=== PATIENT | male | born 1975 | race Two or more races ===

== ENCOUNTER 2019-11-13 10:18 | Emergency (ER) | payer MEDICAID ==
[~2019-11-13] VITALS: Ht 172.7 cm; Wt 78.9 kg
[~2019-11-13 10:18] MED LIST: BACITRACIN15 GM TOPIC; BACTRIM DS TAB1 EAC1 ORAL; CYCLOBENZAPRINE10 MG ORAL; HM DOUBLE ANT28.4 G1 TP; IBUPROFEN600 MG ORAL; TYLENOL325 MG ORAL
[2019-11-13 10:44] VITALS: BP 139/81
--- NOTE | 2019-11-13 10:45 | NUR ---
ED Nurse Note: seen here approx 2 weeks ago and treated for infection to right middle finger. pt relates continues to bed red and swelling.
[2019-11-13] MEDS ORDERED: Cephalexin 500mg cap ORAL ONE (11:00)
[2019-11-13] MEDS ORDERED: AUGMENTIN 875-1 EAC1 ORAL (11:00)
[2019-11-13 11:05] VITALS: BP 132/79
--- NOTE | 2019-11-13 11:05 | NUR ---
ER DISCHARGE NOTE: Patient is cleared to be discharged per ERMD, pt is aox4, on room air, with stable vital signs. pt was given dc and prescription instructions, pt was able to verbalize understanding, pt id band removed. pt is able to ambulate with steady gait. pt took all belongings.
--- NOTE | 2019-11-13 11:08 | Emergency Room Report ---
History of Present Illness General Chief Complaint: Upper Extremity Injury Source: Patient Present Illness HPI Patient is a 44-year-old male denies any significant past medical history who presents to the ER complaining of recurrent infection to his right middle cuticle. Patient states that he has been seen at several facilities and was treated with antibiotics. He states that he is here because he has recurrence of symptoms. No fever or chills. Specifically denies any history of diabetes. Allergies: Coded Allergies: No Known Allergies (Unverified , 11/13/19) Patient History Past Medical History: none Past Surgical History: none Social History: Reports: smoking, alcohol use, drug use Nursing Documentation-[facility] Past Medical History: No Stated History Review of Systems All Other Systems: negative except mentioned in HPI Physical Exam Vital Signs Date Time Temp Pulse Resp B/P (MAP) Pulse Ox O2 Delivery O2 Flow Rate FiO2 11/13/19 10:35 98.4 65 18 139/81 (100) 97 Room Air Sp02 EP Interpretation: reviewed, normal General Appearance: no apparent distress, alert, GCS 15, non-toxic Head: normocephalic, atraumatic Eyes: bilateral eye normal inspection, bilateral eye PERRL ENT: hearing grossly normal, normal pharynx, no angioedema, normal voice Neck: full range of motion, supple/symm/no masses Respiratory: chest non-tender, lungs clear, normal breath sounds, speaking full sentences Cardiovascular #1: regular rate, rhythm, no edema Cardiovascular #2: 2+ radial (R), 2+ radial (L) Gastrointestinal: normal bowel sounds, non tender, soft, non-distended, no guarding, no rebound Rectal: deferred Genitourinary: normal inspection, no CVA tenderness Musculoskeletal: back normal, normal range of motion, calf tenderness, gait/ station normal, non-tender Neurologic: alert, motor strength/tone normal, oriented x3, sensory intact, responsive, speech normal Psychiatric: judgement/insight normal, memory normal, mood/affect normal, no suicidal/homicidal ideation Skin: other - Mild swelling and erythema to right middle cuticle region with no discharge no obvious discharge or pus to drain. Normal range of motion no crepitus Lymphatic: no adenopathy Medical Decision Making Diagnostic Impression: Primary Impression: Paronychia ER Course Patient given oral antibiotics and advised to follow-up with outpatient clinic for further treatment and evaluation. After discussing risks and benefits of further diagnostics, treatment plans, as well as indications for and risks of admission, the patient is agreeable to being discharged home. I have explained that their evaluation and treatment in the emergency department today is an important step towards them achieving better health but that their evaluation today is not intended to replace further evaluation and treatment by a physician in their local clinic. I have explained that while the current findings suggest no immediate life threatening emergency they will require further evaluation and treatment by a physician of their choice in their area. They understand that it will be necessary for them to review the final reports of their ED visit with their clinic physician. We have reviewed indications for return to the Emergency Department. I have explained that additional time may need to pass and/or additional testing as an outpatient may be necessary before a definitive diagnosis can be made. They tell me they are willing to follow up as instructed within the timeframe I recommend. They appear to understand what we discussed. Additionally they understand that if they are unable to be seen by an outpatient physician they are welcome, and in fact should, return to the Emergency Department for a repeat evaluation. The patient is stable at time of discharge. Last Vital Signs Date Time Temp Pulse Resp B/P (MAP) Pulse Ox O2 Delivery O2 Flow Rate FiO2 11/13/19 11:05 98.2 76 16 132/79 100 Room Air Disposition: HOME, SELF-CARE Condition: Stable Scripts Amoxicillin/Potassium Clav 875-125* (AUGMENTIN 875-125 TABLET*) 1 Each Tablet 1 TAB ORAL TWICE A DAY, #14 TAB Prov: Domenica Barney M.D. 11/13/19 [address]errals: [facility] Andreea Coker. [facility] Patient Instructions: Taina Valenzuela-to-Read Domenica Barney M.D. Nov 13, 2019 11:08
== END 2019-11-13 11:05 | disposition home or self-care (01) ==
LOC: EDUNIT# 11:00 → EMR 11:00
DX: L03.011 Cellulitis of right finger (principal); F17.200 Nicotine dependence, unspecified, uncomplicated
CPT/HCPCS: 99282